=== PATIENT | female | born 1965 | race Caucasian/White ===

== ENCOUNTER 2018-08-17 11:18 | Emergency (ER) | payer MEDICAID ==
[~2018-08-17] VITALS: Ht 162.6 cm; Wt 60.0 kg
[2018-08-17] MEDS ORDERED: PHEN15TA18 PO (11:22)
[2018-08-17] MEDS ORDERED: PHENOBARBITAL 100MG TABLET PO ONE (11:30)
[2018-08-17] MEDS ORDERED: CEFTRIAXONE SODIUM 1 G/VIAL IM ONE (11:30)
[2018-08-17] MEDS ORDERED: LIDOCAINE HCL 1% 20ML VIAL (Pyxis) INJ INFIL ONE (11:30)
[2018-08-17 13:12] VITALS: BP 146/95
[2018-08-17] MEDS ORDERED: TOPIRAMATE 25MG TABLET PO SCH (21:00)
== END 2018-08-17 13:21 | disposition home or self-care (01) ==
LOC: EDBD 11:18 → ER 11:18
DX: G40.909 Epilepsy, unspecified, not intractable, without status epilepticus (principal); F14.10 Cocaine abuse, uncomplicated; Z91.14 Patient's other noncompliance with medication regimen
CPT/HCPCS: 82962; 96372; 99283; J0696; J3490

== ENCOUNTER 2018-08-28 13:55 | Emergency (ER) | payer MEDICAID ==
[~2018-08-28] VITALS: Ht 167.6 cm; Wt 68.0 kg
[~2018-08-28 13:55] MED LIST: PHEN15TA18 PO
[2018-08-28 20:53] VITALS: BP 137/94
== END 2018-08-28 20:54 | disposition home or self-care (01) ==
LOC: ER 13:55
DX: Z76.0 Encounter for issue of repeat prescription (principal); I10 Essential (primary) hypertension; G40.909 Epilepsy, unspecified, not intractable, without status epilepticus; F17.210 Nicotine dependence, cigarettes, uncomplicated; F14.10 Cocaine abuse, uncomplicated; Z71.6 Tobacco abuse counseling
CPT/HCPCS: 82962; 99283; 99406